=== PATIENT | female | born 1965 | race Caucasian/White ===

== ENCOUNTER 2017-06-29 07:49 | Day surgery (SDC) | payer OTHER ==
[2017-06-28 13:21] VITALS: BMI 21.2
[2017-06-29] MEDS ORDERED: PROPOFOL 20 ML ONE ×2 (08:57)
[2017-06-29 09:53] VITALS: TEMP 97.7
[2017-06-29 11:54] VITALS: BP 122/80; PULSE 67
--- NOTE | 2017-06-30 14:27 | PATH ---
Surgical Pathology Report Patient Name: IONA AREVALO [facility]. Rec. #: [id number] /Age/Gender: 1965 (Age: 52) / F Account: [id number] Location: U-ENDOSCOPY Taken: 06/29/2017 Received: 06/29/2017 Reported: 06/30/2017 Physicians: Tracey Salomon M.D. Specimen(s) Received BX HEPATIC FLEXURE POLYP Clinical History History of colon polyp Polyp Final Diagnosis COLON, HEPATIC FLEXURE, BIOPSY: TUBULAR ADENOMA. Electronically Signed Mag Pickett M.D. Gross Description Received in formalin, labeled "biopsy hepatic flexure" are 3 evans, irregular portions of soft tissue averaging 0.2 cm. in greatest dimension. The specimens are submitted in toto in one cassette. 06/29/201706/29/2017
== END 2017-06-29 11:00 | disposition home or self-care (01) ==
LOC: JASU-ENDO 07:49
PROVIDERS: ATTEND Internal Medicine Gastroenterology
PROC: 0DBL8ZX Excision of Transverse Colon, Via Natural or Artificial Opening Endoscopic, Diagnostic (ICD-10-PCS; principal; 2017-06-29 09:00)
DX: Z12.11 Encounter for screening for malignant neoplasm of colon (principal); Z83.71 Family history of colonic polyps; D12.6 Benign neoplasm of colon, unspecified; K64.8 Other hemorrhoids
CPT/HCPCS: 88305-TC

== ENCOUNTER 2023-01-28 08:18 | Emergency (ER) | payer OTHER ==
[2023-01-28 08:37] VITALS: BMI 24.1
[2023-01-28] MEDS ORDERED: FAMOTIDINE 20 MG/50 ML IVPB 20 MG/50 ML MG IVPB ONE ×2 (08:43→08:57)
[2023-01-28] MEDS ORDERED: SODIUM CHLORIDE 1,000 ML IV STA (08:43)
[2023-01-28] MEDS ORDERED: ACETAMINOPHEN 1000 MG/100 ML BAG IVPB ONE (08:43)
[2023-01-28] MEDS ORDERED: ACETAMINOPHEN INJECTION 100 ML IVPB ONE (08:57)
[2023-01-28 10:14] LABS: BASO % 0.6 % (0-2.0); EOS % 0.3 % (0-4.5); HEMATOCRIT 41.4 % (32.4-45.2); LYMPH % 16.6 % (8-40); MCH 33.1 pg (25.7-33.7); MCHC 33.9 g/dl (32.0-36.0); MEAN CELL VOLUME 97.6 fl (80-96); MEAN PLT VOLUME 11.5 fl (7.5-11.1); MONO % 9.4 % (3.8-10.2); NEUT % 73.1 % (42.8-82.8); PLATELET COUNT 182 10^3/uL (134-434); RBC 4.24 M/mm3 (3.60-5.2); RDW 13.2 % (11.6-15.6); WHITE BLOOD COUNT 6.5 K/mm3 (4.0-10.0)
[2023-01-28 10:18] LABS: INR 1.05 (0.83-1.09); PROTHROMBIN TIME (PATIENT) 12.2 SEC (9.7-13.0)
[2023-01-28 10:29] LABS: POTASSIUM 4.3 mmol/L (3.5-5.1)
[2023-01-28 10:31] LABS: CALCIUM 9.5 mg/dL (8.5-10.1)
[2023-01-28 10:32] LABS: BLOOD UREA NITROGEN 12.9 mg/dL (7-18); MAGNESIUM 2.3 mg/dL (1.8-2.4)
[2023-01-28 10:36] LABS: BILIRUBIN,TOTAL 0.9 mg/dL (0.2-1); TOT PROT 7.4 g/dl (6.4-8.2)
[2023-01-28 12:29] VITALS: TEMP 98
[2023-01-28 15:26] VITALS: BP 137/81; PULSE 84; RESP 17
== END 2023-01-28 14:54 | disposition home or self-care (01) ==
LOC: JER 08:18
PROC: 3E033GC Introduction of Other Therapeutic Substance into Peripheral Vein, Percutaneous Approach (ICD-10-PCS; principal; 2023-01-28)
PROC: 3E033NZ Introduction of Analgesics, Hypnotics, Sedatives into Peripheral Vein, Percutaneous Approach (ICD-10-PCS; 2023-01-28)
DX: R10.13 Epigastric pain (principal); R10.11 Right upper quadrant pain; R50.9 Fever, unspecified; D18.03 Hemangioma of intra-abdominal structures
CPT/HCPCS: 36415; 71046-TC-FY; 74177-TC; 76705-TC; 80053; 83690; 83735; 84484; 85025; 85610; 85730; 86850; 86900; 86901; 93005; 93010; 99285-25; Q9967

== ENCOUNTER 2024-03-10 08:16 | Emergency (ER) | payer OTHER ==
[2024-03-10 08:24] VITALS: RESP 16; BMI 23.3
[2024-03-10] MEDS ORDERED: ACETAMINOPHEN INJECTION 100 ML IVPB ONE (08:46)
[2024-03-10 09:30] LABS: HEMOGLOBIN 14.2 G/dL (10.7-15.3); MCH 32.3 pg (25.7-33.7); MCHC 32.3 g/dl (32.0-36.0); MEAN PLT VOLUME 10.5 fl (7.5-11.1); PLATELET COUNT 146.2 10^3/uL (134-434); RDW 13.4 % (11.6-15.6); WHITE BLOOD COUNT 10.6 10^3/uL (4.0-10.8)
[2024-03-10] MEDS: SODIUM CHLORIDE 1,000 ML IV STA (09:35)
[2024-03-10] MEDS: ACETAMINOPHEN 1000 MG/100 ML BAG IVPB ONE (09:38)
[2024-03-10 09:44] LABS: INR 1.05 (0.83-1.09); PROTHROMBIN TIME (PATIENT) 11.9 SEC (9.7-13.0)
[2024-03-10 09:51] LABS: ALBUMIN 4.2 g/dl (3.4-5.0); ALK PHOS 67 U/L (45-117); ANION GAP 8 mmol/L (4-13); CALCIUM 9.5 mg/dl (8.5-10.1); CHLORIDE 103 mmol/L (98-107); CO2 28 mmol/L (21-32); GLUCOSE,RANDOM 103 mg/dl (74-106); POTASSIUM 4.2 mmol/L (3.5-5.1); SGOT/AST 18 U/L (15-37); SGPT/ALT 15 U/L (7-52); SODIUM 139 mmol/L (136-145); TOT PROT 6.5 g/dl (6.4-8.2)
[2024-03-10 10:04] LABS: BILIRUBIN,TOTAL 1.1 mg/dl (0.2-1)
[2024-03-10 10:21] LABS: PLATELET ESTIMATE ADEQUATE
[2024-03-10 11:46] VITALS: BP 131/80; PULSE 72; TEMP 98.6
[2024-03-10] MEDS ORDERED: AMOX TR/POT CLAV 875MG/125MG TABLETS (FP) ONE (13:18)
[2024-03-10] MEDS: AMOX TR/POT CLAV 875MG/125MG TABLETS (FP) PO ONE (13:23)
== END 2024-03-10 13:24 | disposition home or self-care (01) ==
LOC: FER 08:16
PROC: 3E033NZ Introduction of Analgesics, Hypnotics, Sedatives into Peripheral Vein, Percutaneous Approach (ICD-10-PCS; principal; 2024-03-10)
PROC: 3E0337Z Introduction of Electrolytic and Water Balance Substance into Peripheral Vein, Percutaneous Approach (ICD-10-PCS; 2024-03-10)
DX: K57.32 Diverticulitis of large intestine without perforation or abscess without bleeding (principal); R10.32 Left lower quadrant pain; R50.9 Fever, unspecified
CPT/HCPCS: 36415; 74177-TC; 80053; 81003; 83690; 85027; 85610; 86850; 86900; 86901; 99285-25; J0131; Q9967

== ENCOUNTER 2024-06-15 04:30 | Day surgery (SDC) | payer OTHER ==
[2024-06-08 11:41] VITALS: BMI 23.6
[2024-06-15 08:31] VITALS: TEMP 97.4
[2024-06-15 08:43] VITALS: RESP 18
[2024-06-15 09:18] VITALS: BP 118/70; PULSE 637
== END 2024-06-15 09:28 | disposition home or self-care (01) ==
LOC: JASU-ENDO 04:30
PROVIDERS: ATTEND Internal Medicine Gastroenterology
PROC: 0DJD8ZZ Inspection of Lower Intestinal Tract, Via Natural or Artificial Opening Endoscopic (ICD-10-PCS; principal; 2024-06-15 08:00)
DX: Z12.11 Encounter for screening for malignant neoplasm of colon (principal); K57.30 Diverticulosis of large intestine without perforation or abscess without bleeding; K59.00 Constipation, unspecified; Z86.0100 Personal history of colon polyps, unspecified